=== PATIENT | female | born 1950 | race Caucasian/White ===

== ENCOUNTER → 2017-06-08 | Outpatient (CLI) | payer OTHER ==
[~2017-06-08] MED LIST: AUGMENTIN 500-1 EACH PO; DIFLUCAN200 MG PO; FLUCONAZOLE 10100 MG PO; HYDROCODONE-AP1 EAC6 PO; LISINOPRIL-HCT1 EAC2 PO; OMEPRAZOLE 20 M20 M1 PO; OMEPRAZOLE40 MG PO; PAXIL10 MG PO; ZOCOR 10 MG TAB10 MG PO
== END ==
LOC: M.RAD 13:50
DX: Z12.31 Encounter for screening mammogram for malignant neoplasm of breast (principal)

== ENCOUNTER → 2017-09-08 | Outpatient (CLI) | payer MEDICARE, OTHER | LOC: M.RAD 08:50 | DX: M85.89 Other specified disorders of bone density and structure, multiple sites (principal); I10 Essential (primary) hypertension; Z78.0 Asymptomatic menopausal state ==